=== PATIENT | female | born 1955 | race Caucasian/White ===

== ENCOUNTER → 2017-09-29 | Outpatient (CLI) | payer OTHER ==
[~2017-09-29] MED LIST: AMLODIPINE BESYL5 MG PO; ATARAX10 MG PO; BACLOFEN10 MG PO; BENTYL20 MG PO; BUSPAR5 MG PO; CALCIUM CITRAT1 EA15 PO; CARAFATE1 GM PO; CELECOXIB200 MG PO; DILAUDID2 MG PO; ESTRADIOL1 EAC4 TP; FIORINAL 50-321 EACH PO; HYDROCHLOROTH12.5 M3 PO; KLONOPIN0.5 M1 PO; LISINOPRIL5 MG PO; LOVENOX40 MG/0.4 SC; NASONEX17 GM BOTH NARES; NORVASC2.5 MG PO; OXYCONTIN10 MG PO; PREVACID30 MG PO; PREVPAC PATIEN1 EACH PO; PROAIR HFA8.5 GM IH; PROTONIX40 MG PO; SENNA PLUS TAB1 EACH PO; SIMVASTATIN40 MG PO; SODIUM CHLORIDE1 G1 PO; TRAMADOL HCL50 MG PO; VALACYCLOVIR1000 MG PO; VISTARIL25 MG PO; VITAMIN B12-FO1 EACH PO; VITAMIN D-32000 UNI2 PO; ZANTAC150 MG PO; ZOLOFT100 MG PO; [UNRECOGNIZED DRUG - OTHER] PO
[2017-09-29 16:08] LABS: BASE EXCESS -0.2 mEq/L (-3 to +3); BICARBONATE 22.8 mEq/L (22-26); CARBOXY HGB 1.7 % (0-5); COMMENTS - BLOOD GASES A+C+; FI02 0.21 %; METHEMOGLOBIN 1.2 % (0-1.5); PCO2 32 mm Hg (35-45); PO2 88 mm Hg (80-100); SITE LR; pH 7.46 (7.35-7.45)
== END | disposition home or self-care (01) ==
LOC: RES 15:41
PROVIDERS: Internal Medicine
DX: Z01.812 Encounter for preprocedural laboratory examination (principal); J30.1 Allergic rhinitis due to pollen
CPT/HCPCS: 36600; 82803